=== PATIENT | male | born 1955 | race Caucasian/White ===

== ENCOUNTER 2017-03-29 13:48 | Observation (INO) | payer OTHER ==
[~2017-03-29] VITALS: Ht 170.2 cm; Wt 129.1 kg
[~2017-03-29 13:48] MED LIST: ALBUTEROL2.5 MG/3 M IH; ALEVE220 MG PO; AMOXICILLIN500 MG PO; ASPIRIN325 MG PO; DUONEB 2.5-0.5 M3 ML IH; FUROSEMIDE40 MG PO; GABAPENTIN300 MG PO; GLIPIZIDE10 MG PO; GLUCOPHAGE1000 MG PO; GRALISE300 MG PO; HYDROCODON-ACE1 EAC7 PO; KLOR-CON 1010 ME1 PO; LANTUS 3 M100 UNITS1 SC; LEVITRA20 MG PO; LEVOFLOXACIN750 MG PO; LISINOPRIL-HCT1 EAC3 PO; LOPRESSOR25 MG PO; METFORMIN HCL1000 MG PO; METOPROLOL TART25 MG PO; ONE DAILY FOR1 EACH PO; POTASSIUM CHLO10 ME4 PO; PROAIR RESPICL90 MCG IH; RELION PRIME1 EACH MC; SIMVASTATIN20 MG PO; SPIRIVA RESPIMAT4 GM IH; SYMBICORT60 INHALAT IH; [UNRECOGNIZED DRUG - OTHER] PO
[2017-03-29 14:08] LABS: POINT-OF-CARE METER ID UU13113778
[2017-03-29 14:23] LABS: HEMATOCRIT 41.6 % (38.0-50.0); MCH 25.8 PG (29.0-34.0); MCHC 32.2 G/DL (30.0-36.0); MCV 80.2 FL (86-99); MEAN PLAT.VOLUME 9.9 uM^3 (9.0-12.4); PLATELET COUNT 245 K/uL (156-360); RBC DIS.WIDTH-CV 13.6 % (11.8-14.6); RBC DIS.WIDTH-SD 38.8 % (39-53); RED BLOOD COUNT 5.19 M/uL (4.00-5.50)
[2017-03-29 14:31] LABS: CHLORIDE 102 mEq/L (99-109); POTASSIUM 3.7 mEq/L (3.7-5.4); SODIUM 141 mEq/L (136-147)
[2017-03-29 14:33] LABS: GLUCOSE 162 mg/dL (70-99)
[2017-03-29 14:34] LABS: ANION GAP 13 MEQ/L (2-14)
[2017-03-29 14:37] LABS: GFR ESTIMATE (CALCULATED) > 59 mL/min/
[2017-03-29 14:38] LABS: UREA NITROGEN (BUN) 16 mg/dL (9-23)
[2017-03-29 17:41] LABS: TROP-I INTERPRETATION NEGATIVE; TROPONIN-I 0.02 ng/mL (0.0-0.30)
[2017-03-29 17:43] LABS: Estimated Average Glucose 189 mg/dL (70-123); HEMOGLOBIN A1c (GLYCOHEMOGLOB) 8.2 % HGB (Below 5.7)
[2017-03-29 19:15] LABS: ADD MIUA? YES; BILIRUBIN NEGATIVE; BLOOD NEGATIVE; COLOR YELLOW ((YELLOW)); GLUCOSE (STRIP) 150; KETONES NEGATIVE; LEUKOCYTES SMALL; NITRITE NEGATIVE; PROTEIN (STRIP) 30; SPECIFIC GRAVITY 1.019 (1.000-1.030); UROBILINOGEN 0.2 MG/DL (0.2-1.0)
[2017-03-29 19:26] LABS: BACTERIA RARE /HPF; EPITHELIAL CELLS RARE /HPF; HYALINE CASTS 0-5 /LPF; MUCUS TRACE /LPF; RED BLOOD CELLS 0-5 /HPF (0-5)
[2017-03-29 20:15] LABS: PROTHROMBIN TIME 11.1 SEC (10.2-12.9)
[2017-03-29 20:17] LABS: D-DIMER ELISA < 150.00 ng/mLDDU (<230); PTT 27.8 SEC (25-37)
[2017-03-29 20:29] LABS: TROP-I INTERPRETATION NEGATIVE; TROPONIN-I 0.02 ng/mL (0.0-0.30)
[2017-03-29 20:40] LABS: HDL CHOLESTEROL 30 MG/DL (Desirable>=40); LDL CHOLESTEROL 67 mg/dL (Desirable<100); NON-HDL CHOLESTEROL 131 mg/dL (Desirable<160); TOTAL CHOLESTEROL 161 mg/dL (Desirable<200); TRIGLYCERIDES 322 MG/DL (Normal: <150)
[2017-03-29 22:34] LABS: POINT-OF-CARE METER ID UU13113700
[2017-03-29 23:45] VITALS: BP 121/59
[2017-03-30 03:10] LABS: BASOPHIL COUNT 0.1 K/uL (0-0.1); EOSINOPHIL (%) 2.9 % (0-5); EOSINOPHIL COUNT 0.3 K/uL (0-0.3); HEMATOCRIT 39.9 % (38.0-50.0); IMMATURE GRANULOCYTE (%) 0.7 % (0.0-0.7); IMMATURE GRANULOCYTE COUNT 0.1 K/uL; INSTRUMENT ABS NEUTROPHIL CT 6.2 K/uL; MCH 25.6 PG (29.0-34.0); MCHC 31.3 G/DL (30.0-36.0); MCV 81.6 FL (86-99); MEAN PLAT.VOLUME 10.3 uM^3 (9.0-12.4); MONOCYTE (%) 8.2 % (3-12); MONOCYTE COUNT 0.8 K/uL (0-0.8); NEUTROPHIL (%) 66.1 % (45-76); NEUTROPHIL COUNT 6.2 K/uL (1.8-6.4); PLATELET COUNT 208 K/uL (156-360); RBC DIS.WIDTH-CV 13.7 % (11.8-14.6); RBC DIS.WIDTH-SD 40.2 % (39-53); RED BLOOD COUNT 4.89 M/uL (4.00-5.50); WHITE BLOOD COUNT 9.4 K/uL (4.1-10.2)
[2017-03-30 03:21] LABS: CHLORIDE 102 mEq/L (99-109); POTASSIUM 3.4 mEq/L (3.7-5.4); SODIUM 141 mEq/L (136-147)
[2017-03-30 03:24] LABS: GLUCOSE 206 mg/dL (70-99)
[2017-03-30 03:25] LABS: ANION GAP 10 MEQ/L (2-14); TOTAL BILIRUBIN 0.4 mg/dL (0.0-1.0)
[2017-03-30 03:27] LABS: ALKALINE PHOSPHATASE 61 IU/L (3-129); GFR ESTIMATE (CALCULATED) > 59 mL/min/
[2017-03-30 03:28] LABS: UREA NITROGEN (BUN) 18 mg/dL (9-23)
[2017-03-30 03:29] LABS: DIRECT BILIRUBIN 0.1 mg/dL (0.0-0.3)
[2017-03-30 03:36] LABS: TROP-I INTERPRETATION NEGATIVE; TROPONIN-I 0.02 ng/mL (0.0-0.30)
[2017-03-30 03:45] VITALS: BP 137/82
[2017-03-30 07:48] VITALS: BP 139/62
[2017-03-30 13:23] LABS: POINT-OF-CARE METER ID UU13113700
[2017-03-30] MEDS ORDERED: SYMBICORT60 INHALAT IH (13:41)
[2017-03-30] MEDS ORDERED: VENTOLIN HFA18 GM IH (13:41)
[2017-03-30] MEDS ORDERED: LASIX40 MG PO (13:42)
[2017-03-30] MEDS ORDERED: GLIPIZIDE10 MG PO (13:43)
[2017-03-30] MEDS ORDERED: GABAPENTIN300 MG PO (13:43)
[2017-03-30] MEDS ORDERED: LOPRESSOR25 MG PO (13:44)
[2017-03-30] MEDS ORDERED: LISINOPRIL-HCT1 EAC3 PO (13:44)
[2017-03-30] MEDS ORDERED: METFORMIN HCL1000 MG PO (13:44)
[2017-03-30] MEDS ORDERED: POTASSIUM CHLO10 ME3 PO (13:45)
[2017-03-30] MEDS ORDERED: ASPIR 8181 M1 PO (13:46)
[2017-03-30] MEDS ORDERED: PROSTATE HEALT1 EAC1 PO (13:48)
[2017-03-30] MEDS ORDERED: LANTUS 3 M100 UNITS1 SC (14:22)
[2017-03-30 15:09] VITALS: BP 143/84
== END 2017-03-30 16:04 | disposition home or self-care (01) ==
LOC: EME 13:48 → EDOF 19:26 → 5WEST 19:26 → ENRESERV 19:27 → 5WEST 21:03
PROVIDERS: Hospitalist; Physician Assistant
DX: R55 Syncope and collapse (principal); R07.9 Chest pain, unspecified; I11.0 Hypertensive heart disease with heart failure; I50.9 Heart failure, unspecified; I45.10 Unspecified right bundle-branch block; J44.9 Chronic obstructive pulmonary disease, unspecified; J96.10 Chronic respiratory failure, unspecified whether with hypoxia or hypercapnia; Z99.81 Dependence on supplemental oxygen; G47.30 Sleep apnea, unspecified; E66.01 Morbid (severe) obesity due to excess calories; I27.2 Other secondary pulmonary hypertension; E11.42 Type 2 diabetes mellitus with diabetic polyneuropathy; E78.5 Hyperlipidemia, unspecified; R60.0 Localized edema; Z79.4 Long term (current) use of insulin; Z79.84 Long term (current) use of oral hypoglycemic drugs; F40.240 Claustrophobia; Z91.19 Patient's noncompliance with other medical treatment and regimen; Z82.49 Family history of ischemic heart disease and other diseases of the circulatory system
CPT/HCPCS: 70450; 70551; 71020; 80048; 80061; 80076; 81003; 82607; 82746; 82948; 83036; 84439; 84443; 84484; 85025; 85027; 85379; 85610; 85730; 93005; 93306; 94799; 99202; 99281; 99285; G0378; J1650; J1815; J7030